=== PATIENT | female | born 1970 | race Caucasian/White ===

== ENCOUNTER → 2020-10-27 11:55 | Outpatient (CLI) | payer BC, SELFPAY ==
--- NOTE | 2020-10-27 12:04 | BI_ITS ---
MAMMOGRAPHY - BILATERAL SCREENING REASON FOR EXAM: Female, 50 years old. Routine annual screening examination. PERTINENT HISTORY: Grandmother with breast cancer. TECHNIQUE: Digital bilateral breast luis (3D mammographic acquisition) in the CC and MLO projections. 2-D mediolateral oblique (MLO) and craniocaudad (CC) views of both breasts were obtained. CAD: Full Field Digital Mammography with Computer Added Detection was performed. COMPARISON: Comparison is made with prior study dated 11/14/2015 and 11/30/2011. FINDINGS: Breast Composition: There are scattered areas of fibroglandular density. There are no dominant masses or suspicious calcifications. No other significant abnormalities are identified. There has been no significant change since the prior study. BI/SCREEN MAMM (CAD) W/LUIS BILAT IMPRESSION: Stable bilateral screening mammogram. Yearly follow-up mammogram recommended. (A) ASSESSMENT CATEGORY: BIRADS Category 1: Negative. A letter regarding these results will be sent to the patient by the facility within 30 days. Approximately 10% of breast cancers are not detected by mammography. A normal mammogram should not delay biopsy of a clinically suspicious abnormality. [id number] Electronically Signed: Jose Ramirez, at 13:13 EST , Service support ,
== END ==
PROVIDERS: PCP Nurse Practitioner Primary Care; Referring Provider Nurse Practitioner Primary Care; Visit Provider Nurse Practitioner Primary Care
DX: Z12.31 Encounter for screening mammogram for malignant neoplasm of breast (principal)
CPT/HCPCS: 77063; 77067

== ENCOUNTER → 2021-04-20 10:32 | Outpatient (CLI) | payer BC, SELFPAY | PROVIDERS: PCP Nurse Practitioner Primary Care; Referring Provider Urology; Visit Provider Urology | DX: N39.0 Urinary tract infection, site not specified (principal); R30.0 Dysuria | CPT/HCPCS: 87086; 87088 ==

== ENCOUNTER → 2022-05-22 | Outpatient (CLI) | payer BC, SELFPAY ==
[2022-05-22 16:21] LABS: Vitamin B12 331 pg/mL (211-911); Vitamin D,25 Hydroxy 53.1 ng/mL
[2022-05-22 16:28] LABS: Ferritin 20 ng/mL (8-252)
[2022-05-31 14:56] LABS: Vitamin A, Retinol 40.5 ug/dL (20.1-62.0); Zinc, Plasma or Serum 67 ug/dL (44-115)
== END | disposition home or self-care (01) ==
PROVIDERS: PCP Nurse Practitioner Primary Care; Visit Provider Student in an Organized Health Care Education/Training Program
DX: K14.6 Glossodynia (principal)
CPT/HCPCS: 36415; 82306; 82607; 82728; 82746; 84590; 84630

== ENCOUNTER → 2022-05-25 | Outpatient (CLI) | payer BC, SELFPAY | END | disposition home or self-care (01) | LOC: LAB.FUTURE 09:38 → WOBLAB 09:44 | PROVIDERS: PCP Nurse Practitioner Primary Care; Visit Provider Student in an Organized Health Care Education/Training Program | DX: K14.6 Glossodynia (principal) ==

== ENCOUNTER → 2023-12-25 | Outpatient (CLI) | payer BC, SELFPAY ==
[2023-12-25 17:40] LABS: Hematocrit 43.8 % (37-47); Hemoglobin 14.4 g/dL (12.0-15.0); Mean Corp Hgb Conc 32.9 g/dL (32-36); Mean Corpuscular Hgb 30.8 pg (27.0-32.0); Mean Corpuscular Volume 93.6 fL (81-99); Mean Platelet Vol. 12.2 fl (6.2-12.0); Platelet Count 258 K/mm3 (150-450); RBC Distribution Width SD 41.3 fl (35.1-43.9); Red Blood Count 4.68 M/mm3 (4.2-5.4); White Blood Count 5.6 K/mm3 (4.4-11.0)
[2023-12-25 17:50] LABS: Erythrocyte Sedimentation Rate 2 mm/hr (0-30)
[2023-12-25 17:51] LABS: CRP < 2.90 mg/L (0.0-3.0)
--- OUTSIDE RECORDS SUMMARY | 2023-12-25 17:57 | XMS RPT_ITS | CCD ---
Author Name Unknown Address [address] [place] [address] Organization [facility] Care Team Providers Care Program Host Name Role Phone Unavailable Primary Care Provider PANCHO Vicente Primary Care Physicia n PANCHO KIM Attending Unava ilPANCHO Laura Primary Care Unava ilable PANCHO KIM Attending Karolynva illisa PADGETT, PANCHO Kay Primary Care Unava ilable Medications Current Medications Medication Drug Class(es) Dates Sig (Normalized) Sig (Original) doxycycline monohydrate 100 mg oral capsule (1 source) Tetracycline-class Drug Start: 01-09-2023 take 1 capsule by mouth twice daily at mealtime doxycycline monohydrate 100 mg oral capsule TAKE ONE PILL BY MOUTH TWICE DAILY WITH FOOD FOR 7 DAYS. Start Date: 01/09/23 Status: Ordered Multivitamin preparation (2 sources) Start: 03-09-2020 take 1 tablet by mouth once daily Multivitamin Dose = 1 tab(s), Oral, Daily, 0 Refill(s) Start Date: 03/09/20 Status: Ordered nitrofurantoin, macrocrystals 25 mg / nitrofurantoin, monohydrate 75 mg oral capsule (1 source) Nitrofuran Antibacterial Start: 05-03-2022 End: 05-10-2022 take 1 capsule by mouth twice daily at mealtime nitrofurantoin monohydrate and macrocrystal (MACROBID) 100 mg capsule Indications: Pain with urination Take 1 capsule by mouth twice daily with meals for 7 days. 14 capsule 0 05/03/2022 05/10/2022 Active Completed/Discontinued Medications Medication Drug Class(es) Dates Sig (Normalized) Sig (Original) fluticasone propionate 0.05 mg/actuat metered dose nasal spray (1 source) Corticosteroid Start: 11-18-2019 take 2 spray(s) by mouth once daily fluticasone (FLONASE) 50 mcg/actuation nasal spray Indications: Bacterial sinusitis , ETD (Eustachian tube dysfunction), bilateral Use 2 Sprays in each nostril once daily. Rinse mouth after use. 1 Bottle 1 11/18/2019 Active Problems Problem Classification Problem Date Documented Date Episodic/Chronic Allergic reactions (2 sources) Contact dermatitis 04-17-2022 Episodic Esophageal disorders (1 source) Gastroesophageal reflux disease 01-30-2023 Chronic Genitourinary symptoms and ill-defined conditions (1 source) Dysuria; Translations: [Painful micturition, unspecified] Episodic Inflammatory diseases of female pelvic organs (2 sources) Bacterial vaginosis 09-27-2020 Episodic Other female genital disorders (2 sources) Vaginal discharge 09-27-2020 Episodic Other female genital disorders (2 sources) Other specified noninflammatory disorders of vagina; Translations: [Other specified noninflammatory disorders of vagina] Onset: 03-05-2023 Episodic Other female genital disorders (2 sources) Unspecified condition associated with female genital organs and menstrual cycle; Translations: [Unspecified condition associated with female genital organs and menstrual cycle] Onset: 01-09-2023 Episodic Other inflammatory condition of skin (2 sources) Intertrigo 04-17-2022 Episodic Other nervous system disorders (2 sources) Burning sensation of vagina 01-09-2023 Episodic Regional enteritis and ulcerative colitis (2 sources) Ulcerative colitis 04-04-2021 Chronic Unclassified (2 sources) Cancer cervix screening status 09-27-2020 Unclassified (2 sources) Patient encounter status 09-27-2020 Results Test Name Value Interpretation Reference Range Facil ity Vital Signs Date Time Vital Sign Value Performing Clinician Faci lity 05-03-2022 18:58-0400 Body temperature 97.39 [degF] Polly Lara APRN.CNP Work Phone: [facility] 05-03-2022 18:58-0400 Body weight 74.57 kg Polly Lara APRN.CNP Work Phone: [facility] 05-03-2022 18:58-0400 Diastolic blood pressure 90 mm[Hg] Polly Lara VIOLIN REPAIRER.GENERAL SURGEON Work Phone: [facility] 05-03-2022 18:58-0400 Heart rate 92 /min Polly Lara VIOLIN REPAIRER.GENERAL SURGEON Work Phone: [facility] 05-03-2022 18:58-0400 Respiratory rate 20 /min Polly Lara VIOLIN REPAIRER.GENERAL SURGEON Work Phone: [facility] 05-03-2022 18:58-0400 SaO2% (BldA) [Mass fraction] 97 % Polly Lara APRN.GENERAL SURGEON Work Phone: [facility] 05-03-2022 18:58-0400 Systolic blood pressure 158 mm[Hg] Polly Lara VIOLIN REPAIRER.GENERAL SURGEON Work Phone: [facility] Encounters Encounter Date Encounter Type Care Provider Facility Start: 03-05-2023 End: 03-10-2023 ambulatory PANCHO FORBES VIOLIN REPAIRER-GENERAL SURGEON Facility:B Start: 03-05-2023 End: 03-09-2023 Outreach Lab PANCHO FORBES APRN-GENERAL SURGEON [facility] Start: 01-09-2023 End: 01-14-2023 ambulatory PANCHO FORBES VIOLIN REPAIRER-GENERAL SURGEON Facility:B Start: 01-09-2023 End: 01-13-2023 Outreach Lab PANCHO FORBES VIOLIN REPAIRER-GENERAL SURGEON [facility] Start: 05-03-2022 End: 05-03-2022 Patient encounter procedure Polly Lara APRN.GENERAL SURGEON Work Phone: [facility] Procedures Date Procedure Procedure Detail Performing Clinician Start: 05-03-2022 Urnls dip stick/tabl et rgnt auto w/o microscopy Polly Lara APRN.GENERAL SURGEON Work Phone: Start: 11-12-2014 Colonoscopy Polly Singer APRN.CNP Work Phone: Plan of Treatment Date Care Activity Detail Author Start: 07-12-2022 Influenza vaccination INFLUENZA (Season Ended) [facility] Start: 2021 SHINGRIX VACCINE (1 of 2) SHINGRIX VACCINE (1 of 2) [facility] Start: 01-15-2018 COLORECTAL CANCER SCREENING COLORECTAL CANCER SCREENING [facility] Start: 01-15-2018 SIGMOIDOSCOPY SIGMOIDOSCOPY [facility] Start: 2016 COLOGUARD (FIT-DNA) COLOGUARD (FIT-DNA) [facility] Start: 2016 Colonoscopy COLONOSCOPY [facility] Start: [address] COLONOGRAPHY [facility] Start: 2016 DIABETES SCREEN DIABETES SCREEN [facility] Start: 2016 FECAL OCCULT BLOOD FECAL OCCULT BLOOD [facility] Start: 2016 LIPID SCREEN LIPID SCREEN [facility] Start: 2011 Mammography MAMMOGRAM [facility] Start: 2001 HPV TESTING HPV TESTING [facility] Start: 1992 PAP TESTING PAP TESTING [facility] Start: 1990 Urine microalbumin profile DTAP,TDAP,TD (1 - Tdap) [facility] Start: 1989 HEPATITIS C SCREENING HEPATITIS C SCREENING [facility] Start: 1989 HIV SCREENING HIV SCREENING [facility] Start: 1983 Adult depression screening assessment DEPRESSION SCREENING [facility] Start: 1976 COVID-19 VACCINE (#1) COVID-19 VACCINE (#1) [facility] Bacteria identified in Urine by Culture URINE CULTURE Microbiology Routine Pain with urination Ordered: 05/03/2022 [facility] Work Phone: Immunizations Immunization Date Immunization Notes Care Provider Julianna angela 08-20-2013 influenza virus vaccine, live, attenuated, for intranasal use Polly Lara APRN.YARY Work Phone: [facility] 08-26-2010 influenza virus vaccine, live, attenuated, for intranasal use Polly Lara APRN.CNP Work Phone: [facility] Work Phone: 08-13-2009 influenza virus vaccine, live, attenuated, for intranasal use Polly Lara APRN.GENERAL SURGEON Work Phone: [facility] 08-25-2008 influenza virus vaccine, live, attenuated, for intranasal use Polly Lara APRN.GENERAL SURGEON Work Phone: [facility] 09-11-2006 influenza virus vaccine, unspecified formulation Polly Lara APRN.GENERAL SURGEON Work Phone: [facility] Work Phone: Payers Date Payer Category Payer Unknown [id number] 2010 Unknown [employer] BS FEP PPO [id number] 2010-Present [phone] [address] [place] [address] PPO 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 MICRO - Microbiology PROCEDURE: Affirm Pathogens DNA Direct Probe [*1] SOURCE: Vaginal Fluid BODY SITE: Vagina COLLECTED DATE/TIME: 03/05/2023 16:33 EDT RECEIVED DATE/TIME: 03/05/2023 19:44 EDT START DATE/TIME: 03/05/2023 19:44 EDT FREE TEXT SOURCE: FINAL REPORTS Final Report [] Verified Date/Time/Personnel: 03/06/2023 09:18 EDT Trichomonas vaginalis DNA Probe Negative Gardnerella vaginalis DNA Probe Negative Sophia species DNA Probe Negative Performing Locations *1: This test was performed at: [address], [facility] ([place]) 01-10-2023 Note . MICRO - Microbiology PROCEDURE: Affirm Pathogens DNA Direct Probe [*1] SOURCE: Vaginal Fluid BODY SITE: Vaginal Wall COLLECTED DATE/TIME: 01/09/2023 15:11 EST RECEIVED DATE/TIME: 01/09/2023 19:57 EST START DATE/TIME: 01/09/2023 19:57 EST FREE TEXT SOURCE: FINAL REPORTS Final Report [] Verified Date/Time/Personnel: 01/10/2023 09:41 EST Sophia species DNA Probe Positive Trichomonas vaginalis DNA Probe Negative Gardnerella vaginalis DNA Probe Negative Performing Locations *1: This test was performed at: [address], [facility] , [facility] ([place]) 05-03-2022 Note HNO ID: [id number] Author: Polly Lara APRN.GENERAL SURGEON Service: ? Author Type: Nurse Practitioner Type: Progress Notes Filed: 05/03/2022 8:04 PM Note Text: Dulce Maria Alcantar is a 52 year old female who presents with burning with urination, frequency, and urgency that began today. She denies any fever, chill, abdominal pain, pelvic pain, or flank pain. Reports currently menstruating. Denies taking any medications for her symptoms. The history is provided by the patient. No professor of languages was used. UTI This is a new problem. The current episode started 6 to 12 hours ago. The problem has been gradually worsening. The quality of the pain is described as burning. There has been no fever. Associated symptoms include frequency and urgency. Pertinent negatives include no chills, no nausea, no vomiting and no flank pain. Review of Systems Constitutional: Negative for chills and fever. Respiratory: Negative for shortness of breath. Cardiovascular: Negative for chest pain. Gastrointestinal: Negative for abdominal pain, constipation, diarrhea, nausea and vomiting. Genitourinary: Positive for dysuria, frequency and urgency. Negative for flank pain. Musculoskeletal: Negative for back pain. BP 158/90 Pulse 92 Temp 36.3 ?C (97.4 ?F) Resp 20 Wt 74.6 kg (164 lb 6.4 oz) LMP 04/27/2022 SpO2 97% BMI 28.22 kg/m? PAST MEDICAL HISTORY Diagnosis Date - Hemorrhage of gastrointestinal tract, unspecified - Hemorrhage of rectum and anus - PMH - PAST MEDICAL HISTORY OF blood in stool - Snoring - Ulcerative (chronic) proctitis (HCC) PAST SURGICAL HISTORY Procedure Laterality Date - COLONOSCOPY FLX DX W/COLLJ SPEC WHEN PFRMD 01/15/2013 Colonoscopy - COLONOSCOPY FLX DX W/COLLJ SPEC WHEN PFRMD 11/12/14 Colonoscopy - PAST SURGICAL HISTORY OF age 20 staff infection right hip had surgery - SIGMOIDOSCOPY FLX W/BIOPSY SINGLE/MULTIPLE 07/11/09 ALLERGIES Patient has no known allergies. MEDICATIONS nitrofurantoin monohydrate and macrocrystal (MACROBID) 100 mg capsule Take 1 capsule by mouth twice daily with meals for 7 days. mesalamine (ROWASA) 4 gram/60 mL enema Use one at bedtime as needed. fluticasone (FLONASE) 50 mcg/actuation nasal spray Use 2 Sprays in each nostril once daily. Rinse mouth after use. propranolol 20 mg tablet Take 1 tablet by mouth three times daily. No family history on file. Social History Tobacco Use - Smoking status: Never Smoker - Smokeless tobacco: Never Used Substance Use Topics - Alcohol use: No - Drug use: Not on file Objective Physical Exam Vitals and nursing note reviewed. Constitutional: Appearance: Normal appearance. Cardiovascular: Rate and Rhythm: Normal rate and regular rhythm. Pulmonary: Effort: Pulmonary effort is normal. Breath sounds: Normal breath sounds. Abdominal: Palpations: Abdomen is soft. Tenderness: There is no abdominal tenderness. There is no right CVA tenderness, left CVA tenderness or guarding. Skin: General: Skin is warm. Neurological: Mental Status: She is alert and oriented to person, place, and time. ASSESSMENT/PLAN: 1. Pain with urination - ICD9: 788.1, ICD10: R30.9 acute - UA positive for melanie esterase and hematuria - Send urine for culture - Begin treatment with Macrobid 100 mg BID for 7 days - Patient education for prevention given - UA DIP, URINE (POC) - URINE CULTURE - NITROFURANTOIN MONOHYDRATE AND MACROCRYSTAL 100 MG ORAL CAP SARMAD [employer] student TEACHING PROVIDER (Physician/PA/VIOLIN REPAIRER) NOTE OF PERSONAL INVOLVEMENT IN CARE: I have personally seen and examined the patient and performed the medical decision-making components. I have reviewed the Advanced Practice Registered Nurse (VIOLIN REPAIRER) Student's documentation and verified the findings in the note as written. Any additions or changes are noted in bold/italics. Signature: Polly Marco Date: 05/03/2022 Time: 8:03 PM [facility] 05-03-2022 History of Present illness Narrative Dulce Maria Alcantar is a 52 year old female who presents with burning with urination, frequency, and urgency that began today. She denies any fever, chill, abdominal pain, pelvic pain, or flank pain. Reports currently menstruating. Denies taking any medications for her symptoms. The history is provided by the patient. No professor of languages was used. UTI This is a new problem. The current episode started 6 to 12 hours ago. The problem has been gradually worsening. The quality of the pain is described as burning. There has been no fever. Associated symptoms include frequency and urgency. Pertinent negatives include no chills, no nausea, no vomiting and no flank pain. Review of Systems Constitutional: Negative for chills and fever. Respiratory: Negative for shortness of breath. Cardiovascular: Negative for chest pain. Gastrointestinal: Negative for abdominal pain, constipation, diarrhea, nausea and vomiting. Genitourinary: Positive for dysuria, frequency and urgency. Negative for flank pain. Musculoskeletal: Negative for back pain. BP 158/90 Pulse 92 Temp 36.3 C (97.4 F) Resp 20 Wt 74.6 kg (164 lb 6.4 oz) LMP 04/27/2022 SpO2 97% BMI 28.22 kg/m PAST MEDICAL HISTORY Diagnosis Date Hemorrhage of gastrointestinal tract, unspecified Hemorrhage of rectum and anus PMH - PAST MEDICAL HISTORY OF blood in stool Snoring Ulcerative (chronic) proctitis (HCC) PAST SURGICAL HISTORY Procedure Laterality Date COLONOSCOPY FLX DX W/COLLJ SPEC WHEN PFRMD 01/15/2013 Colonoscopy COLONOSCOPY FLX DX W/COLLJ SPEC WHEN PFRMD 11/12/14 Colonoscopy PAST SURGICAL HISTORY OF age 20 staff infection right hip had surgery SIGMOIDOSCOPY FLX W/BIOPSY SINGLE/MULTIPLE 07/11/09 ALLERGIES Patient has no known allergies. MEDICATIONS nitrofurantoin monohydrate and macrocrystal (MACROBID) 100 mg capsule Take 1 capsule by mouth twice daily with meals for 7 days. mesalamine (ROWASA) 4 gram/60 mL enema Use one at bedtime as needed. fluticasone (FLONASE) 50 mcg/actuation nasal spray Use 2 Sprays in each nostril once daily. Rinse mouth after use. propranolol 20 mg tablet Take 1 tablet by mouth three times daily. No family history on file. Social History Tobacco Use Smoking status: Never Smoker Smokeless tobacco: Never Used Substance Use Topics Alcohol use: No Drug use: Not on file Objective Physical Exam Vitals and nursing note reviewed. Constitutional: Appearance: Normal appearance. Cardiovascular: Rate and Rhythm: Normal rate and regular rhythm. Pulmonary: Effort: Pulmonary effort is normal. Breath sounds: Normal breath sounds. Abdominal: Palpations: Abdomen is soft. Tenderness: There is no abdominal tenderness. There is no right CVA tenderness, left CVA tenderness or guarding. Skin: General: Skin is warm. Neurological: Mental Status: She is alert and oriented to person, place, and time. ASSESSMENT/PLAN: 1. Pain with urination - ICD9: 788.1, ICD10: R30.9 acute - UA positive for melanie esterase and hematuria - Send urine for culture - Begin treatment with Macrobid 100 mg BID for 7 days - Patient education for prevention given - UA DIP, URINE (POC) - URINE CULTURE - NITROFURANTOIN MONOHYDRATE & MACROCRYSTAL 100 MG ORAL CAP SARMAD [employer] student TEACHING PROVIDER (Physician/PA/VIOLIN REPAIRER) NOTE OF PERSONAL INVOLVEMENT IN CARE: I have personally seen and examined the patient and performed the medical decision-making components. I have reviewed the Advanced Practice Registered Nurse (VIOLIN REPAIRER) Student's documentation and verified the findings in the note as written. Any additions or changes are noted in bold/italics. Signature: Polly Lara Date: 05/03/2022 Time: 8:03 PM documented in this encounter [facility] 05-03-2022 Instructions Chelly Wilson - 05/03/2022 7:04 PM EDT ASSESSMENT/PLAN: 1. Pain with urination - ICD9: 788.1, ICD10: R30.9 acute - UA positive for melanie esterase and hematuria - Send urine for culture - Begin treatment with Macrobid 100 mg BID for 7 days - Patient education for prevention given - UA DIP, URINE (POC) - URINE CULTURE - NITROFURANTOIN MONOHYDRATE & MACROCRYSTAL 100 MG ORAL CAP SARMAD [employer] student Patient Education for Female Urinary Tract Infections Possible complications: Pyelonehritis Renal abscess Expected course/prognosis: * symptoms resolve within 2-3 days after starting treatment in almost all patients * one-fourth of women with simple UTI experience a second UTI within 6 months, and half at some time during lifetime. * patients with multiple recurrent UTI and no underlying urinary tract abnormality may receive long-term prophylactic antibioitic treatment. Trimethoprim-sulfamethoxazole and nitrofurantoin common used. * women with frequent or intercourse-related UTI should empty bladder immediately before and following intercourse and consider postcoital antibiotic treament Instructions: * Maintain good hydration * Avoid sexual intercourse when symptoms present *Take antibiotic as directed * Return if symptoms not resolved or markedly improved within 48 hours * Return if fever, chills, or flank pain develop * If taking prophylactic antiobiotics, take at bedtime * Take showers instead of tub baths * Avoid feminine hygiene sprays and scented douches * Wipe urethra from front to back Please call or return to the office if you are not feeling better in 5-7 days. You can try taking OTC Uristat (pyridium) if needed for burning. Beware that it will turn your urine orange/red. documented in this encounter [facility] 08-27-2021 Note HNO ID: [id number] Author: Annalisa Denbow, PA-C Service: ? Author Type: Physician [employer] Delivery Driver Type: Progress Notes Filed: 08/27/2021 4:09 PM Note Text: Subjective HPI HPI King Alcantar is a 51 year old female who presents today for CC of cold-like sx- started 3 days ago. Started with sore throat, headache- now burning in chest and mouth is rather dry. Pt reports that she is about to babysit her 8 month old grandchild, and see her mom this upcoming weekend so she wanted to make sure it's not covid. Grandson had a cold last week. Symptoms include: Fever (?100.4F): No or Chills: No Cough: Yes Shortness of breath: No or Difficulty breathing: No Fatigue: Yes Muscle aches: No Headache: Yes New loss of smell or taste: No Sore throat: Yes Nasal congestion: Yes or Rhinorrhea: Yes Nausea: No or Vomiting: No Diarrhea: No OTC meds/remedies that patient has tried: OTC cold medicine, IBU High risk category assessment No high risk factors Exposures: Sick contacts? Yes Family or close contacts with confirmed/probable COVID-19 in last 14 days? No BP 140/78 Pulse 98 Temp 36.8 ?C (98.3 ?F) Resp 16 Wt 73.9 kg (163 lb) LMP 05/24/2020 SpO2 97% BMI 27.98 kg/m? Social History Tobacco Use - Smoking status: Never Smoker - Smokeless tobacco: Never Used Substance Use Topics - Alcohol use: No - Drug use: Not on file PAST MEDICAL HISTORY Diagnosis Date - Hemorrhage of gastrointestinal tract, unspecified - Hemorrhage of rectum and anus - PMH - PAST MEDICAL HISTORY OF blood in stool - Snoring - Ulcerative (chronic) proctitis (HCC) I have confirmed and edited as necessary, the [facility] Review of Systems All other systems reviewed and are negative. Objective BP 140/78 Pulse 98 Temp 36.8 ?C (98.3 ?F) Resp 16 Wt 73.9 kg (163 lb) LMP 05/24/2020 SpO2 97% BMI 27.98 kg/m? Physical Exam HENT: Head: Normocephalic. Right Ear: Tympanic membrane, ear canal and external ear normal. No drainage. No middle ear effusion. Tympanic membrane is not perforated, erythematous, retracted or bulging. Left Ear: Ear canal normal. No drainage. No middle ear effusion. Tympanic membrane is not perforated, erythematous, retracted or bulging. Nose: Congestion and rhinorrhea present. Right Sinus: No maxillary sinus tenderness or frontal sinus tenderness. Left Sinus: No maxillary sinus tenderness or frontal sinus tenderness. Mouth/Throat: Pharynx: Uvula midline. No oropharyngeal exudate or posterior oropharyngeal erythema. Tonsils: No tonsillar abscesses. Eyes: General: Lids are normal. Conjunctiva/sclera: Conjunctivae normal. Cardiovascular: Rate and Rhythm: Normal rate and regular rhythm. Heart sounds: S1 normal and S2 normal. No friction rub. Pulmonary: Effort: Pulmonary effort is normal. Breath sounds: Normal breath sounds. No wheezing, rhonchi or rales. Lymphadenopathy: Head: Right side of head: No submental, submandibular, tonsillar, preauricular, posterior auricular or occipital adenopathy. Left side of head: No submental, submandibular, tonsillar, preauricular, posterior auricular or occipital adenopathy. Cervical: Right cervical: No superficial or posterior cervical adenopathy. Left cervical: No superficial or posterior cervical adenopathy. Neurological: Mental Status: She is oriented to person, place, and time. ASSESSMENT/PLAN: 1. URI, acute - ICD9: 465.9, ICD10: J06.9 - Discussed viral etiology and rationale for treatment. - 2019 CORONAVIRUS Covid testing rdered; Results will be released to [facility] in 24-48 hours. Discussed quarantine, social distancing, hand washing/proper hygiene. Rest, fluids, OTC medications discussed. Pt advised to see PCP if symptoms persist or progress. Reviewed red flags with patient and when to seek care sooner. The patient indicates understanding of these issues and agrees with the plan. Annalisa Toth PA-C [facility] documented as of this encounter (statuses as of 05/04/2022) [facility] No data available for this section [facility] Evaluation note* Diagnosis Pain with urination- Primary Renal colic documented in this encounter [facility] Discharge instructions No data available for this section [facility] Progress note No data available for this section [facility] Summary Purpose Family History No Family History Records FoundNo Family History Records Found Advance Directives No Advanced Directives Records FoundNo Advanced Directives Records Found Additional Source Comments Source Comments (unrecognize d section and content) In the event this informatio n is protected by the Federal Confidentiality of Alcohol and Drug Abuse Patient Records regulations: The Federal rules restrict any use of the information to criminally investigate or prosecute any alcohol or drug abuse patient.[facility] Reason for Visit (unrecogniz ed section and content) INFORMATION SOURCE (unrecogn ized section and content) DATE CREATED AUTHOR AUTHOR'S ORGANIZ ATION 03/09/2023 [facility] Care Team (unrecognized sect ion and content) Care Team Personnel Name: PANCHO FORBES VIOLIN REPAIRER-GENERAL SURGEON Position: P4 Advanced Application Integrator Member Role: Primary Care Physician Address: Address: [address] [place] [address] Care Team Related Persons Name: ETTA ALCANTAR Address: Home [address] [place] [phone] Name: MARGARETH ALCANTAR Address: Home [address] [place] [phone] Patient Care team informatio n (unrecognized section and content) Care Team Personnel Name: PANCHO FORBES VIOLIN REPAIRER-GENERAL SURGEON Position: P4 Advanced Application Integrator Member Role: Primary Care Physician Address: Address: [address] [place] [address] Care Team Related Persons Name: ETTA ALCANTAR Address: Home [address] [place] [phone] Name: MARGARETH ALCANTAR Address: [address] [phone] FOR RECORDS PERTAINING TO PATIENTS WHO ARE OR HAVE BEEN ENROLLED IN A CHEMICAL DEPENDENCY/SUBSTANCEABUSE PROGRAM, SOME INFORMATION MAY BE OMITTED. This clinical summary was aggregated from multiple sources. Caution should be exercised in using it in the provision of clinical care. This summary normalizes information from multiple sources, and as a consequence, information in this document may materially change the coding, format and clinical context of patient data. In addition, data may be omitted in some cases. CLINICAL DECISIONS SHOULD BE BASED ON THE PRIMARY CLINICAL RECORDS. [facility] provides no warranty or guarantee of the accuracy or completeness of information in this document.
== END | disposition home or self-care (01) ==
PROVIDERS: PCP Nurse Practitioner Primary Care; Referring Provider Internal Medicine Gastroenterology; Visit Provider Internal Medicine Gastroenterology
DX: K51.90 Ulcerative colitis, unspecified, without complications (principal)
CPT/HCPCS: 36415; 85027; 85652; 86140

== ENCOUNTER → 2024-09-01 | Outpatient (CLI) | payer BC, SELFPAY ==
--- NOTE | 2024-09-01 15:53 | RAD_ITS ---
INDICATION: RIGHT GROIN PAIN EXAMINATION/TECHNIQUE: X-RAY - XR Hips Bilateral with Pelvis when performed; 2 Views COMPARISON: FINDINGS: PELVIC BONES: No displaced fracture, destructive or sclerotic lesions. Note that overlapping bowel shadows may however obscure fine detail. Sacroiliac joints are unremarkable. No widening of the pubic symphysis. HIPS: Mild joint space narrowing of both hip joints consistent with mild arthrosis. No displaced fracture seen in this frontal view. SOFT TISSUES: No soft tissue swelling or gas. RAD/Hips B/L min 2 views w/ Pelvis IMPRESSION: Mild bilateral hip arthrosis. Electronically Signed: Azeem Montgomery MD at 12:13 EDT ,
== END | disposition home or self-care (01) ==
LOC: MTRAD 15:50
PROVIDERS: PCP Nurse Practitioner Primary Care; Referring Provider Anesthesiology Pain Medicine; Visit Provider Anesthesiology Pain Medicine
DX: R10.31 Right lower quadrant pain (principal)
CPT/HCPCS: 73521

== ENCOUNTER → 2025-03-31 | Outpatient (CLI) | payer BC, SELFPAY ==
--- NOTE | 2025-03-31 11:00 | BI_ITS ---
EXAM: SCRN MAMM (CAD)W/LUIS BILAT 03/31/2025 CLINICAL HISTORY: F, Age 55 y/o , SCREENING TECHNIQUE: Bilateral screening digital breast tomosynthesis with 2D and 3D images. Computer aided detection. COMPARISON: Prior exam(s) dated 10/27/2020, 11/14/2015, 11/30/2011. FINDINGS: TISSUE DENSITY: The breast tissue is composed of scattered area of fibroglandular density. Bilateral Breast Mammographic Findings: No significant masses, calcifications or other abnormalities are identified. BI/SCRN MAMM (CAD)W/LUIS BILAT IMPRESSION: Right Breast: BIRADS 1 NEGATIVE. Left Breast: BIRADS 1 NEGATIVE. OVERALL FINAL ASSESSMENT: BIRADS 1 NEGATIVE. RECOMMENDATION: Routine annual follow-up in 1 Year A letter with findings and recommendations will be mailed to the patient. Reading Location: [id number]
== END | disposition home or self-care (01) ==
LOC: OPBI 10:57
PROVIDERS: PCP Nurse Practitioner Primary Care; Referring Provider Nurse Practitioner Primary Care; Visit Provider Nurse Practitioner Primary Care
DX: Z12.31 Encounter for screening mammogram for malignant neoplasm of breast (principal)
CPT/HCPCS: 77063; 77067